=== PATIENT | male | born 1930 | race Caucasian/White ===

== ENCOUNTER 2016-06-05 10:08 | Outpatient (CLI) | payer MEDICARE, OTHER | END 2016-06-05 10:09 | disposition home or self-care (01) | DX: I48.92 Unspecified atrial flutter (principal) ==

== ENCOUNTER 2016-07-08 11:22 | Outpatient (CLI) | payer MEDICARE, OTHER | END 2016-07-08 11:23 | disposition home or self-care (01) | DX: I48.92 Unspecified atrial flutter (principal) ==

== ENCOUNTER 2016-08-27 14:00 | Outpatient (CLI) | payer MEDICARE, OTHER | END 2016-08-27 14:01 | disposition home or self-care (01) | DX: Z12.5 Encounter for screening for malignant neoplasm of prostate (principal); E03.9 Hypothyroidism, unspecified; I48.2 Chronic atrial fibrillation | CPT/HCPCS: 36415; 80053; 80162; 84443; G0103 ==

== ENCOUNTER 2016-11-20 08:00 | Outpatient (CLI) | payer MEDICARE, OTHER | END 2016-11-20 08:01 | LOC: LAB.F 08:00 | PROVIDERS: ATTEND Family Medicine | DX: I48.92 Unspecified atrial flutter (principal) | CPT/HCPCS: 85610 ==

== ENCOUNTER 2016-12-26 13:18 | Outpatient (CLI) | payer MEDICARE, OTHER ==
--- NOTE | 2016-12-26 15:13 | XRAY Report ---
TWO-VIEW LEFT SHOULDER: 12/26/2016 CLINICAL INDICATION: Pain. FINDINGS: AP and oblique views of the left shoulder demonstrate a comminuted proximal humeral fractu re, without definite intraarticular extension. There is foreshortening and mild angulation. 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 IMPRESSION: COMMINUTED PROXIMAL HUMERAL FRACTURE, WITH FORESHORTENING AND MILD ANGULATION. JOB #: [id number] EXT JOB #:[id number]
== END 2016-12-26 13:19 | disposition home or self-care (01) ==
LOC: DI.S 13:18
PROVIDERS: ATTEND Family Medicine
DX: S42.202A Unspecified fracture of upper end of left humerus, initial encounter for closed fracture (principal)

== ENCOUNTER 2017-01-22 14:56 | Outpatient (CLI) | payer MEDICARE, OTHER | END 2017-01-22 14:57 | disposition home or self-care (01) | LOC: LAB.F 14:56 | PROVIDERS: ATTEND Family Medicine | DX: I48.92 Unspecified atrial flutter (principal) | CPT/HCPCS: 85610 ==

== ENCOUNTER 2017-04-15 13:58 | Outpatient (CLI) | payer MEDICARE, OTHER ==
[2017-04-15 18:52] LABS: ALBUMIN/GLOBULIN RATIO 1.3 (1.0-2.2); BILIRUBIN,TOTAL 0.6 mg/dL (0.2-1.0); BUN - BLOOD UREA NITROGEN 16 mg/dL (6-20); CARBON DIOXIDE - CO2 26 mmol/L (21-32); CHLORIDE 106 mmol/L (101-111); CREATININE 0.7 mg/dL (0.6-1.2); GFR - MDRD 107 (>89); GLUCOSE 111 mg/dL (70-100); POTASSIUM 4.2 mmol/L (3.5-5.0); SODIUM 137 mmol/L (135-145)
== END 2017-04-15 13:59 | disposition home or self-care (01) ==
LOC: LAB.F 13:58
PROVIDERS: ATTEND Internal Medicine Cardiovascular Disease
DX: I48.2 Chronic atrial fibrillation (principal); I48.92 Unspecified atrial flutter
CPT/HCPCS: 36415; 80053; 80162; 85610

== ENCOUNTER 2017-06-12 14:07 | Outpatient (CLI) | payer MEDICARE, OTHER | END 2017-06-12 14:08 | disposition home or self-care (01) | LOC: LAB.F 14:07 | PROVIDERS: ATTEND Family Medicine | DX: I48.92 Unspecified atrial flutter (principal) | CPT/HCPCS: 85610 ==

== ENCOUNTER 2017-08-06 14:17 | Outpatient (CLI) | payer MEDICARE, OTHER | END 2017-08-06 14:18 | disposition home or self-care (01) | LOC: LAB.F 14:17 | PROVIDERS: ATTEND Family Medicine | DX: I48.92 Unspecified atrial flutter (principal) | CPT/HCPCS: 85610 ==

== ENCOUNTER 2017-10-06 13:06 | Outpatient (CLI) | payer MEDICARE, OTHER | END 2017-10-06 13:07 | disposition home or self-care (01) | LOC: LAB.F 13:06 | PROVIDERS: ATTEND Family Medicine | DX: I48.92 Unspecified atrial flutter (principal) | CPT/HCPCS: 85610 ==

== ENCOUNTER 2017-12-02 13:49 | Outpatient (CLI) | payer MEDICARE, OTHER | END 2017-12-02 13:50 | disposition home or self-care (01) | LOC: LAB.F 13:49 | PROVIDERS: ATTEND Family Medicine | DX: I48.92 Unspecified atrial flutter (principal) | CPT/HCPCS: 85610 ==

== ENCOUNTER 2018-01-08 13:15 | Outpatient (CLI) | payer MEDICARE, OTHER | END 2018-01-08 13:16 | disposition home or self-care (01) | LOC: LAB.F 13:15 | PROVIDERS: ATTEND Family Medicine | DX: I48.92 Unspecified atrial flutter (principal) | CPT/HCPCS: 85610 ==

== ENCOUNTER 2018-03-15 14:47 | Outpatient (CLI) | payer MEDICARE, OTHER | END 2018-03-15 14:48 | disposition home or self-care (01) | LOC: LAB.F 14:47 | PROVIDERS: ATTEND Internal Medicine | DX: I48.91 Unspecified atrial fibrillation (principal) | CPT/HCPCS: 85610 ==

== ENCOUNTER 2018-04-15 10:32 | Outpatient (CLI) | payer MEDICARE, OTHER ==
[2018-04-15 18:14] LABS: ALBUMIN/GLOBULIN RATIO 1.2 (1.0-2.2); ALKALINE PHOSPHATASE 96 IU/L (42-121); ALT ALANINE AMINOTRANSFERASE 20 IU/L (10-60); AST ASPARTATE AMINOTRANSFERASE 21 IU/L (10-42); BILIRUBIN,TOTAL 1.1 mg/dL (0.2-1.0); BUN - BLOOD UREA NITROGEN 16 mg/dL (6-20); CARBON DIOXIDE - CO2 26 mmol/L (21-32); CHLORIDE 107 mmol/L (101-111); CHOL/HDL RATIO 2.7 (<5.0); CHOLESTEROL 130 mg/dL; CREATININE 0.7 mg/dL (0.6-1.2); DIGOXIN 0.4 ng/mL; GFR - MDRD 106 (>89); GLUCOSE 101 mg/dL (70-100); HDL CHOLESTEROL 48 mg/dL; LDL CHOLESTEROL,CALCULATED 71 mg/dL; LDL/HDL RATIO 1.5 (<3.6); SODIUM 138 mmol/L (135-145); TOTAL PROTEIN 7.3 g/dL (6.7-8.2); VLDL CHOLESTEROL 11 mg/dL
== END 2018-04-15 10:33 | disposition home or self-care (01) ==
LOC: LAB.F 10:32
PROVIDERS: ATTEND Internal Medicine
DX: I48.91 Unspecified atrial fibrillation (principal); E78.5 Hyperlipidemia, unspecified; I48.2 Chronic atrial fibrillation
CPT/HCPCS: 36415; 80053; 80061; 80162; 83721; 85610

== ENCOUNTER 2018-06-03 11:48 | Outpatient (CLI) | payer MEDICARE, OTHER | END 2018-06-03 23:59 | disposition home or self-care (01) | LOC: LAB.F 11:48 | PROVIDERS: ATTEND Internal Medicine | DX: I48.91 Unspecified atrial fibrillation (principal) | CPT/HCPCS: 85610 ==

== ENCOUNTER 2018-07-15 11:29 | Outpatient (CLI) | payer MEDICARE, OTHER ==
[2018-07-15 17:36] LABS: CALCIUM 8.9 mg/dL (8.5-10.3); CREATININE 0.6 mg/dL (0.6-1.2)
== END 2018-07-15 11:30 | disposition home or self-care (01) ==
LOC: LAB.F 11:29
PROVIDERS: ATTEND Internal Medicine
DX: Z00.00 Encounter for general adult medical examination without abnormal findings (principal); I48.91 Unspecified atrial fibrillation; H40.9 Unspecified glaucoma; E78.5 Hyperlipidemia, unspecified; I10 Essential (primary) hypertension
CPT/HCPCS: 36415; 80048; 85610

== ENCOUNTER 2018-11-02 13:48 | Outpatient (CLI) | payer MEDICARE, OTHER | END 2018-11-02 13:49 | disposition home or self-care (01) | LOC: LAB.F 13:48 | PROVIDERS: ATTEND Internal Medicine | DX: I48.91 Unspecified atrial fibrillation (principal) | CPT/HCPCS: 85610 ==

== ENCOUNTER 2018-12-16 | Outpatient (CLI) | payer MEDICARE, OTHER | END 2018-12-16 13:59 | disposition home or self-care (01) | DX: I48.91 Unspecified atrial fibrillation (principal) | CPT/HCPCS: 85610 ==

== ENCOUNTER 2019-02-17 13:39 | Outpatient (CLI) | payer MEDICARE, OTHER | END 2019-02-17 13:40 | disposition home or self-care (01) | LOC: LAB 13:39 | PROVIDERS: ATTEND Internal Medicine | DX: I48.91 Unspecified atrial fibrillation (principal) | CPT/HCPCS: 85610 ==

== ENCOUNTER 2019-04-28 12:40 | Outpatient (CLI) | payer MEDICARE, OTHER | END 2019-04-28 12:41 | disposition home or self-care (01) | LOC: LAB 12:40 | PROVIDERS: ATTEND Internal Medicine | DX: I48.91 Unspecified atrial fibrillation (principal) | CPT/HCPCS: 85610 ==

== ENCOUNTER 2019-05-23 11:52 | Outpatient (CLI) | payer MEDICARE, OTHER ==
[2019-05-23 18:23] LABS: BUN - BLOOD UREA NITROGEN 18 mg/dL (6-20); CALCIUM 9.3 mg/dL (8.5-10.3); CARBON DIOXIDE - CO2 27 mmol/L (21-32); CHLORIDE 104 mmol/L (101-111); CHOL/HDL RATIO 2.7 (<5.0); CHOLESTEROL 154 mg/dL; CREATININE 0.8 mg/dL (0.6-1.2); GFR - MDRD 91 (>89); GLUCOSE 105 mg/dL (70-100); HDL CHOLESTEROL 57 mg/dL; LDL CHOLESTEROL,CALCULATED 81 mg/dL; LDL/HDL RATIO 1.4 (<3.6); SODIUM 139 mmol/L (135-145); VLDL CHOLESTEROL 16 mg/dL
== END 2019-05-23 11:53 | disposition home or self-care (01) ==
LOC: LAB.S 11:52
PROVIDERS: ATTEND Internal Medicine
DX: I48.91 Unspecified atrial fibrillation (principal); H40.9 Unspecified glaucoma; E78.5 Hyperlipidemia, unspecified; I10 Essential (primary) hypertension
CPT/HCPCS: 36415; 80048; 80061; 80162; 83721; 85610

== ENCOUNTER 2019-10-13 11:07 | Outpatient (CLI) | payer MEDICARE, OTHER | END 2019-10-13 11:08 | disposition home or self-care (01) | LOC: LAB 11:07 | PROVIDERS: ATTEND Internal Medicine | DX: I48.91 Unspecified atrial fibrillation (principal) | CPT/HCPCS: 85610 ==